=== PATIENT | male | born 1980 | race African-American/Black ===

== ENCOUNTER 2019-04-07 00:10 | Emergency (ER) | payer MEDICAID, OTHER ==
[~2019-04-07] VITALS: Ht 177.8 cm; Wt 117.9 kg
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
[2019-04-07] MEDS ORDERED: IBUPROFEN 400 MG TABLET ONE (00:47)
[2019-04-07] MEDS ORDERED: ACETAMINOPHEN ES 500 MG TABLET ONE (00:47)
[2019-04-07] MEDS ORDERED: IBUPROFEN 400 MG TABLET PO ONE (01:00)
[2019-04-07] MEDS ORDERED: ACETAMINOPHEN ES 500 MG TABLET PO ONE (01:00)
--- NOTE | 2019-04-07 01:54 | NUR ---
Patient discharged to home in stable condition. Written and verbal after care instructions given. Patient verbalizes understanding of instruction.
[2019-04-07 01:55] VITALS: BP 148/88
== END 2019-04-07 01:55 | disposition home or self-care (01) ==
LOC: ER 00:11
DX: S01.511A Laceration without foreign body of lip, initial encounter (principal); R68.84 Jaw pain; F10.10 Alcohol abuse, uncomplicated; Y90.9 Presence of alcohol in blood, level not specified; Y04.2XXA Assault by strike against or bumped into by another person, initial encounter; Y93.89 Activity, other specified; Y92.89 Other specified places as the place of occurrence of the external cause; Y99.8 Other external cause status
CPT/HCPCS: 70486-TC